=== PATIENT | female | born 1990 | race Caucasian/White ===

== ENCOUNTER 2021-12-30 11:39 | Emergency (ER) | payer MEDICAID, SELFPAY ==
[2021-12-30 11:44] VITALS: BP 103/72; PULSE 99; RESP 16; TEMP 36.7; O2SAT 100; BMI 21.6
--- NOTE | 2021-12-30 11:50 | ED_ITS ---
HPI - General Adult General: Chief complaint: Abdominal Pain Stated complaint: abd pain Time Seen by Provider: 12/30/21 11:48 History of Present Illness: Patient is a 31-year-old female with a history of 2 prior , endometrioma/endometriosis, recent hysterectomy on 12/08/2021 at [place] presenting to the emergency room with concerns of diffuse abdominal pain and syncope. Patient tells me that for the last 3 weeks patient has had ongoing abdominal pain after surgery. However earlier today, patient noted that she have gradual worsening diffuse abdominal pain. Patient was at the store earlier today when she passed out. Patient denies any hitting her head. This episode was witnessed by family. Patient denies any vaginal bleeding, melena hematochezia. Patient says that the pain has never been this severe and decided to come to the emergency room for further evaluation. Patient denies any fever but reports chills. Patient has a cough, runny nose sore throat or shortness or chest pain. Patient reports having shortness of breath for the last 2 to 3 weeks but has not worsened in this time. Onset: earlier today Duration:ongoing Location:home Severity:moderate Associated symptoms: Reports dyspnea and nausea; Deny chest pain, rash, palpitations or vomiting Review of Systems Const: Denies: fever(s) or chills Eyes: Denies: change in vision ENMT: Denies: mouth pain Card: Denies: chest pain or palpitations Resp: Reports: dyspnea; Denies: non-productive cough GI: Reports: abdominal pain and nausea; Denies: vomiting or diarrhea : Denies: dysuria Musc: Denies: extremity pain Skin/Breast: Denies: rash or new lesions Neuro: Reports: other (+syncope); Denies: weakness in extremities Psych: Reports: other (Normal mood) Renan/Lymph: Denies: easy bruising PFSH ED PFSH: Medical History Endometrial cancer Endometriosis Surgical History H/O: hysterectomy Social History Smoking and tobacco status: never smoked Alcohol intake: never Physical Exam Const: COMMON NORMALS: alert HENMT: COMMON NORMALS: atraumatic HEAD & SCALP: atraumatic MOUTH: moist mucous membranes abnormal Eye: COMMON NORMALS: EOMs intact bilaterally and conjunctivae normal CONJUNCTIVA: Yes conjunctivae normal Neck/C-Spine: COMMON NORMALS: full ROM and supple Resp: COMMON NORMALS: normal respiratory effort and clear to auscultation bilaterally AUSCULTATION: clear to auscultation bilaterally Cardio: COMMON NORMALS: regular rate RATE: regular rate GI: COMMON NORMALS: Soft to palpation PALPATION: Yes Soft to palpation OTHER: +moderate diffuse TTP. NO guarding rebound, guarding, rigidity. No CVA tenderness to percussion. Neg Caceres/Neg McBurney's point tenderness, no suprabupic tenderness to palpation. Extremity: COMMON NORMALS: full ROM Neuro: SENSORIUM/ORIENTATION: Yes alert MOTOR EXAM: No Abnormal motor strength present and Other motor observations present (no focal motor deficits) Psych: COMMON NORMALS: speech normal SPEECH: Yes normal speech MOOD & AFFECT: Yes euthymic mood Course Vital Signs: Vital signs: Vital Signs Temperature 98.0 F 12/30/21 11:44 Pulse Rate 64 12/30/21 14:45 Respiratory Rate 15 12/30/21 14:37 Blood Pressure 102/65 12/30/21 13:00 Pulse Oximetry 100 12/30/21 14:45 Oxygen Delivery Me thod 12/30/21 14:45 MDM - General Adult Medical Decision Making Patient is a 31-year-old female with a history of 2 prior , endometrioma/endometriosis, recent hysterectomy on 12/08/2021 at [place] presenting to the emergency room with concerns of diffuse abdominal pain and syncope. Exam, patient is hemodynamically stable. Patient is noted have di ffuse abdominal tenderness without guarding or rebound tenderness. EKG not showing signs of Brugada, HOCM, WPW, or QT prolongation. Lab work-up showed hemoglobin 12.6. Lab within normal limit. Patient received IVF report mild diffuse abdominal pain. CT on pelvis did not show any signs of acute pathology. There is no signs of acute extravasation or bleeding. I suspect the patient may has had a vasovagal episode from the pain. Patient has patient does not have any shortness of breath, pleuritic chest pain, hypoxemia or tachycardia, I do not suspect acute pulmonary embolism is the cause of patient's syncope episode. Rx percocet for ongong post-operative pain Disposition: Discharge. Patient counseled regarding diagnostic impression, treatment plan. Patient given ED strict return precautions to return for continuation, worsening, or development of new symptoms. Instructed to f/u w/ PCP regarding symptoms today. Patient verbalized understanding. Around 4 PM, patient shortly after patient was discharged, patient's dimer resulted. Suspect that the D-dimer elevation is likely secondary to postoperative findings. However given elevation of dimer in the setting syncope and mild dyspnea, I have called patient on her cell phone and instructed her that she needs to come back to the emergency room immediately to evaluate for possible blood clot/pulmonary embolism. I explained the risk of not coming back to the emergency room which improved respiratory decompensation and possible . Patient verbalized understanding of the risk and reassures me she will come back to the ED for evaluation of blood clots. Lab Data : 12/30/21 12:44 12/30/21 12:44 Radiology Impressions Abdomen/Pelvis CT 12/30/21 11:58 IMPRESSION: 1. Recent recent reported hysterectomy. No evidence of large fluid collection or hematoma in the hysterectomy bed. 2. Urine distended bladder. 3. Diffuse fatty infiltration liver. 4. No other acute findings. Chest X-Ray 12/30/21 11:58 IMPRESSION: No acute findings. Laboratory Results WBC 5.9 10^3/uL (4.0-10.0) 12/30/21 12:44 RBC 4.41 10^6/uL (4.1-5.3) 12/30/21 12:44 Hgb 12.6 g/dL (11.5-15.3) 12/30/21 12:44 Hct 38.9 % (37.0-47.0) 12/30/21 12:44 MCV 88.2 fl (81-99) 12/30/21 12:44 MCH 28.6 pg (28.0-34.0) 12/30/21 12:44 MCHC 32.4 g/dL (30.0-36.0) 12/30/21 12:44 RDW 12.4 % (12.1-15.1) 12/30/21 12:44 Plt Count 297 10^3/cmm (130-400) 12/30/21 12:44 MPV 9.2 fL (7.4-10.4) 12/30/21 12:44 Neut % (Auto) 61.8 % 12/30/21 12:44 Lymph % (Auto) 29.8 % 12/30/21 12:44 [place] % (Auto) 5.4 % 12/30/21 12:44 Eos % (Auto) 2.5 % 12/30/21 12:44 Baso % (Auto) 0.3 % 12/30/21 12:44 Neut # (Auto) 3.67 10^3/uL (1.8-7.7) 12/30/21 12:44 Lymph # (Auto) 1.8 10^3/uL (0.8-4.8) 12/30/21 12:44 [place] # (Auto) 0.3 10^3/uL (0.2-0.9) 12/30/21 12:44 Eos # (Auto) 0.2 10^3/uL (0.0-0.8) 12/30/21 12:44 Baso # (Auto) 0.0 10^3/uL (0.0-0.1) 12/30/21 12:44 Nucleated RBC % (auto) 0 % 12/30/21 12:44 Nucleated RBCs # 0.0 /100WBC 12/30/21 12:44 PT 13.60 SECONDS (12.1-14.9) 12/30/21 12:44 INR 1.01 (0.8-1.2) 12/30/21 12:44 APTT 30.9 SECONDS (23.9-36.7) 12/30/21 12:44 D-Dimer 4.56 ug/mIFEU (0-0.59) H 12/30/21 12:44 Sodium 137 mmol/L (136-145) 12/30/21 12:44 Potassium 3.7 mmol/L (3.5-5.1) 12/30/21 12:44 Chloride 98 mmol/L (98-107) 12/30/21 12:44 Carbon Dioxide 28 mmol/L (22-29) 12/30/21 12:44 Anion Gap 14.7 (5-19) 12/30/21 12:44 BUN 15 mg/dL (6-20) 12/30/21 12:44 Creatinine 0.7 mg/dL (0.5-0.9) 12/30/21 12:44 GFR Calculation 96.4 mL/min (90-130) 12/30/21 12:44 Glucose 80 mg/dL (65-115) 12/30/21 12:44 Calculated Osmolality 284 mOsm/kg (285-295) L 12/30/21 12:44 Lactate 1.2 mmol/L (0.5-2.2) 12/30/21 12:44 Calcium 9.2 mg/dL (8.5-10.5) 12/30/21 12:44 Total Bilirubin 0.3 mg/dL (0.15-1.2) 12/30/21 12:44 AST 15 U/L (0-32) 12/30/21 12:44 ALT 12 U/L (0-33) 12/30/21 12:44 Alkaline Phosphatase 95 U/L (35-105) 12/30/21 12:44 Total Protein 7.5 g/dL (6.6-8.7) 12/30/21 12:44 Albumin 4.3 g/dL (3.5-5.2) 12/30/21 12:44 Globulin 3.2 g/dL (1.3-4.6) 12/30/21 12:44 Lipase 30 U/L (13-60) 12/30/21 12:44 Urine Color Yellow (Yellow) 12/30/21 14:40 Urine Appearance Hazy (CLEAR) A 12/30/21 14:40 Urine pH 5 (5-7) 12/30/21 14:40 Ur Specific [place] 1.010 (1.005-1.030) 12/30/21 14:40 Urine Protein Trace (Negative) 12/30/21 14:40 Urine Glucose (UA) Norm (Normal) 12/30/21 14:40 Urine Ketones Negative (Negative) 12/30/21 14:40 Urine Blood Neg (Negative) 12/30/21 14:40 Urine Nitrate Negative (Negative) 12/30/21 14:40 Urine Bilirubin Neg (Negative) 12/30/21 14:40 Urine Urobilinogen Norm mg/dL (Negative) 12/30/21 14:40 Ur Leukocyte Esterase Negative (Negative) 12/30/21 14:40 Urine RBC None /hpf (0-2) 12/30/21 14:40 Urine WBC 5-10 /hpf (0-5) H 12/30/21 14:40 Ur Squamous Epith Cells 10-15 /hpf (0-5) H 12/30/21 14:40 Amorphous Sediment Not Reportable 12/30/21 14:40 Urine Bacteria 1+ /hpf (NONE) H 12/30/21 14:40 Imaging Data Other Imaging: Radiologist's impression: [place] [address] XRay Report Signed Patient: Iveth Rojas Unit #: [id number] : 1990 Age/Sex: 31 / F ADM Date: 12/30/21 Loc: ER Room/Bed: Attending Dr: Ordering Provider/Ordering MD: Alda Beasley MD Date of Service: 12/30/21 Procedure(s): XR chest 1V portable [id number] Accession Number(s): [id number] Report Number: [id number] PROCEDURE INFORMATION: Exam: XR Chest Exam date and time: 12/30/2021 12:38 PM Age: 31 years old Clinical indication: Dyspnea; Additional info: Syncope dyspnea TECHNIQUE: Imaging protocol: Radiologic exam of the chest. Views: 1 view. COMPARISON: No relevant prior studies available. FINDINGS: Lungs: Unremarkable. No consolidation. Pleural spaces: Unremarkable. No pleural effusion. No pneumothorax. Heart/Mediastinum: Unremarkable. No cardiomegaly. Bones/joints: Unremarkable. XR/XR chest 1V portable [id number] IMPRESSION: No acute findings. ? Dictated By: Efrain River Signed By: Efrain River Signed Date/Time: 12/30/21 1306 DD/ 1238 [place] [address] CT Scan Report Signed Patient: Iveth Rojas Unit #: [id number] : 1990 Age/Sex: 31 / F ADM Date: 12/30/21 Loc: ER Room/Bed: Attending Dr: Ordering Provider/Ordering MD: Alda Beasley MD Date of Service: 12/30/21 Procedure(s): CT abdomen pelvis w con* [id number] Accession Number(s): [id number] Report Number: [id number] WS: [id number] CT ABDOMEN PELVIS TECHNIQUE: Contrast-enhanced CT of the abdomen and pelvis with coronal and sagittal reformatted images. CLINICAL INFORMATION: abd pain COMPARISON: None. DLP: 350.[address] scans at [facility] use at least one of these dose optimization techniques: automated exposure control; mA and/or kV adjustment per patient size (includes targeted exams where dose is matched to clinical indication); or iterative reconstruction. FINDINGS: Recently reported hysterectomy. No evidence of postoperative abscess, hematoma, or fluid collection in the hysterectomy bed. Trace free fluid in the cul-de-sac. Urine distended bladder. Diffuse fatty infiltration? liver. Normal portal vein and splenic vein. Normal pancreas. Normal spleen. Normal GE junction. Lung bases are well aerated. Adrenal glands are normal. Normal renal parenchymal enhancement. No hydronephrosis. Normal caliber abdominal aorta. Fat-containing umbilical hernia. Normal sigmoid colon. A few diverticuli. No evidence of acute diverticulitis. CT/CT abdomen pelvis w con* [id number] IMPRESSION: ? 1.? Recent recent reported hysterectomy. No evidence of large fluid collection or hematoma in the hysterectomy bed. 2.? Urine distended bladder. 3.? Diffuse fatty infiltration liver. 4.? No other acute findings. ? Dictated By: Jeremiah Rosenthal MD Signed By: Jeremiah Rosenthal MD Signed Date/Time: 12/30/211408 DD/ 02 Discharge Plan Discharge Patient Disposition: Home Clinical Impression: Abdominal pain, Syncope Condition: Stable Prescriptions: New Percocet 5-325 mg tablet 1 tab PO Q8H PRN (Reason: pain) Qty: 5 0RF No Action clonazepam 1 mg tablet 1 mg PO DAILY venlafaxine 150 mg capsule,extended release 24hr 15 mg PO DAILY estradiol 1 mg tablet 1 mg PO DAILY Discharge Orders: Discharge ED (Routine); Ordered 12/30/21 Ordered By: Alda Beasley Discharge Diet: Advance as tolerated Discharge Activity: Increase activity as tolerated Patient Instructions: Abdominal Pain (ED), Pain Management Activity Restrictions/Additional Instructions: Please come back if you have any worsening abdominal pain, fever or chills, nausea or vomiting, diarrhea, blood in the stool, inability hold down liquid or solids, or any new concerning complaints. Please come back to the emergency room for any more breakthrough episodes of passing out. Come back if any weakness in her arms, drooling, difficulty speaking, any neurological symptoms, chest pain/shortness of breath/palpitation or any new or concerning issues. Please do not swim, bathe, operate heavy machinery or drive a vehicle unattended. Coding Level of Care Code ED Epic Interface Analyst for Joceline Fwrin Exam Comprehensive
--- NOTE | 2021-12-30 11:58 | CT_ITS ---
WS: [id number] CT ABDOMEN PELVIS TECHNIQUE: Contrast-enhanced CT of the abdomen and pelvis with coronal and sagittal reformatted image s. CLINICAL INFORMATION: abd pain COMPARISON: None. DLP: 350.[address] scans at [facility] use at least one of these dose optimization techniques: automated e xposure control; mA and/or kV adjustment per patient size (includes targeted exams where dose is matc hed to clinical indication); or iterative reconstruction. FINDINGS: Recently reported hysterectomy. No evidence of postoperative abscess, hematoma, or fluid collection i n the hysterectomy bed. Trace free fluid in the cul-de-sac. Urine distended bladder. Diffuse fatty infiltration liver. Normal portal vein and splenic vein. Normal pancreas. Normal splee n. Normal GE junction. Lung bases are well aerated. Adrenal glands are normal. Normal renal parenchym al enhancement. No hydronephrosis. Normal caliber abdominal aorta. Fat-containing umbilical hernia. Normal sigmoid colon. A few diverticuli. No evidence of acute diverticulitis. CT/CT abdomen pelvis w con* [id number] IMPRESSION: 1. Recent recent reported hysterectomy. No evidence of large fluid collection or hematoma in the hysterectomy bed. 2. Urine distended bladder. 3. Diffuse fatty infiltration liver. 4. No other acute findings.
--- NOTE | 2021-12-30 11:58 | XRR_ITS ---
PROCEDURE INFORMATION: Exam: XR Chest Exam date and time: 12/30/2021 12:38 PM Age: 31 years old Clinical indication: Dyspnea; Additional info: Syncope dyspnea TECHNIQUE: Imaging protocol: Radiologic exam of the chest. Views: 1 view. COMPARISON: No relevant prior studies available. FINDINGS: Lungs: Unremarkable. No consolidation. Pleural spaces: Unremarkable. No pleural effusion. No pneumothorax. Heart/Mediastinum: Unremarkable. No cardiomegaly. Bones/joints: Unremarkable. XR/XR chest 1V portable [id number] IMPRESSION: No acute findings.
--- NOTE | 2021-12-30 11:58 | ECG_ITS ---
[facility] Test Date: 2021-12-30 Pat Name: Iveth Rojas Department: Room: Gender: Female Program Support Assistant: : 1990 Requested By: Alda Beasley Order Number: [id number] Lizbeth MD: Kervin Hebert M.D. Measurements Intervals [place] Rate: 81 P: 83 CT: 156 QRS: 64 QRSD: 98 T: 45 QT: 351 QTc: 409 Interpretive Statements SINUS RHYTHM POSSIBLE LEFT ATRIAL ENLARGEMENT [-0.1mV P-WAVE IN V1/V2] POSSIBLE RIGHT VENTRICULAR CONDUCTION DELAY [RSR (QR) IN V1/V2] MODERATE ST DEPRESSION [0.05+ mV ST DEPRESSION] No previous ECG available for comparison Electronically Signed On 12-30-2021 20:54:20 CDT by Kervin Hebert M.D. [id number]
[2021-12-30 12:33] VITALS: BP 100/48; PULSE 78; O2SAT 100
[2021-12-30 12:52] VITALS: RESP 13
[2021-12-30] MEDS: morphine 4 mg/mL SDV 1 mL IVP ×2 (12:52→14:37)
[2021-12-30] MEDS: acetaminophen 500 mg Tablet PO (12:52)
[2021-12-30] MEDS: sodium chloride 0.9% 1,000 ML 999 ML IV (12:53)
[2021-12-30 12:56] LABS: Basophils % 0.3 %; Eosinophils # 0.2 10^3/uL (0.0-0.8); Eosinophils % 2.5 %; Hematocrit 38.9 % (37.0-47.0); Hemoglobin 12.6 g/dL (11.5-15.3); Lymphocytes # 1.8 10^3/uL (0.8-4.8); Lymphocytes % 29.8 %; Mean Corpuscular HGB Conc 32.4 g/dL (30.0-36.0); Mean Corpuscular Hemoglobin 28.6 pg (28.0-34.0); Mean Corpuscular Volume 88.2 fl (81-99); Mean Platelet Volume 9.2 fL (7.4-10.4); Monocytes # 0.3 10^3/uL (0.2-0.9); Monocytes % 5.4 %; Neutrophils # 3.67 10^3/uL (1.8-7.7); Neutrophils % 61.8 %; Nucleated Red Blood Cells % 0 %; Platelet Count 297 10^3/cmm (130-400); Red Blood Count 4.41 10^6/uL (4.1-5.3); Red Cell Distribution Width 12.4 % (12.1-15.1); White Blood Count 5.9 10^3/uL (4.0-10.0)
[2021-12-30 13:00] VITALS: BP 102/65; PULSE 63; RESP 14; O2SAT 100
[2021-12-30 13:10] LABS: INR 1.01 (0.8-1.2)
[2021-12-30 13:11] LABS: Partial Thromboplastin Time 30.9 SECONDS (23.9-36.7)
[2021-12-30 13:15] LABS: Alanine Aminotransferase 12 U/L (0-33); Albumin Level 4.3 g/dL (3.5-5.2); Alkaline Phosphatase 95 U/L (35-105); Anion Gap 14.7 (5-19); Aspartate Amino Transferase 15 U/L (0-32); Blood Urea Nitrogen 15 mg/dL (6-20); Calcium 9.2 mg/dL (8.5-10.5); Carbon Dioxide 28 mmol/L (22-29); Chloride 98 mmol/L (98-107); Globulin 3.2 g/dL (1.3-4.6); Glomerular Filtration Rate 96.4 mL/min (90-130); Glucose 80 mg/dL (65-115); Lipase 30 U/L (13-60); Osmolality Calculated 284 mOsm/kg (285-295); Potassium 3.7 mmol/L (3.5-5.1); Sodium 137 mmol/L (136-145); Total Bilirubin 0.3 mg/dL (0.15-1.2); Total Protein 7.5 g/dL (6.6-8.7)
[2021-12-30 13:20] LABS: Lactate (Lactic Acid level) 1.2 mmol/L (0.5-2.2)
[2021-12-30] MEDS: iohexol 350 mg/mL 100 mL Btl IV (13:32)
[2021-12-30 14:37] VITALS: RESP 15
[2021-12-30 14:45] VITALS: PULSE 64; O2SAT 100
[2021-12-30 14:59] LABS: Add Urine Microscopic? YES; Bilirubin Urine Neg (Negative); Blood Urine Neg (Negative); Glucose Urine UA Norm (Normal); Ketones Urine Negative (Negative); Leukocyte Esterase Urine Negative (Negative); Nitrate Urine Negative (Negative); Protein Urine Trace (Negative); Urine Appearance Hazy (CLEAR); Urine Color Yellow (Yellow); Urobilinogen Urine Norm (Negative); pH Urine 5 (5-7)
[2021-12-30 15:01] LABS: Add Urine Culture? No; Bacteria Urine 1+ /hpf
[2021-12-30 15:18] LABS: D Dimer 4.56 ug/mIFEU (0-0.59)
== END 2021-12-30 14:55 | disposition home or self-care (01) ==
PROVIDERS: Emergency Provider Emergency Medicine
DX: R10.9 Unspecified abdominal pain (principal); R55 Syncope and collapse; Z85.89 Personal history of malignant neoplasm of other organs and systems
CPT/HCPCS: 71045; 74177; 80053; 81001; 83605; 83690; 85025; 85378; 85610; 85730; 93005; 96361; 96374; 96376; 99285; J2270; J7030; Q9967

== ENCOUNTER 2022-01-21 10:14 | Emergency (ER) | payer MEDICAID, SELFPAY ==
[2022-01-21 10:23] VITALS: BP 105/67; PULSE 84; RESP 18; TEMP 36.2; O2SAT 98; BMI 23.1
--- NOTE | 2022-01-21 11:01 | ED_ITS ---
HPI - Abdominal Pain General: Chief Complaint: Abdominal Pain Stated Complaint: passed out Time Seen by Provider: 01/21/22 10:27 Source: patient Mode of arrival: ambulatory Limitations: no limitations History of Present Illness: 31-year-old female presents emergency room after passing out from severe pelvic pain began suddenly. It is resolved at this time. She has a history of endometriosis and tells me she had endometrial cancer. They did a hysterectomy and then subsequently had other problems r esulting in a bilateral oophorectomy. She was started on estradiol after this her hysterectomy was a little over a month ago. She denies any fever sweats chills no nausea vomiting or diarrhea. MD elicited complaint: abdominal pain Pertinent past history: none Onset (ago): minute(s) Pain Consistency: constant Location: None Severity: mild Quality: cramping Radiation: none Migration to: no migration Exacerbating factors: nothing Relieving factors: nothing Associated Symptoms: Reports constipation and GI cramping; Denies anorexia, belching, bloating, change in bowel habits, change in stool character, chills, coffee ground emesis, diarrhea, dyspepsia, dysuria, excessive flatus, fever(s), heartburn, hematochezia, hematuria, hematemesis, fecal incontinence, loose stools, melena, nausea, poor appetite, syncope and vomiting Review of Systems Const: Denies: fever(s) or chills ENMT: Denies: throat pain, ear or mastoid pain, nasal discharge or nasal congestion Card: Denies: syncope Resp: Denies: dyspnea, productive cough or non-productive cough GI: Reports: constipation and GI cramping; Denies: nausea, vomiting, hematemesis, coffee ground emesis, heartburn, diar herman, bloating, belching, excessive flatus, fecal incontinence, change in bowel habits, change in stool character, hematochezia or melena : Denies: dysuria or hematuria Skin/Breast: Denies: rash or pruritus PFSH ED PFSH: Medical History Endometrial cancer Endometriosis Surgical History H/O: hysterectomy Social History Smoking and tobacco status: never smoked Alcohol intake: never Physical Exam Const: COMMON NORMALS: no acute distress GENERAL APPEARANCE: cooperative and comfortable ORIENTATION/CONSCIOUSNESS: Yes awake, Yes oriented to person, Yes oriented to place and Yes oriented to time HENMT: COMMON NORMALS: normocephalic, atraumatic and hearing grossly normal bilaterally HEAD & SCALP: normocephalic and atraumatic Resp: COMMON NORMALS: normal respiratory effort, No retractions, No use of accessory muscles and clear to auscultation bilaterally AUSCULTATION: clear to auscultation bilaterally Cardio: COMMON NORMALS: regular rate, regular rhythm and No murmurs present (Cardio) RATE: regular rate RHYTHM: regular rhythm GI: COMMON NORMALS: Soft to palpation and No hepatosplenomegaly present AUSCULTATION: Yes normoactive bowel sounds PALPATION: Yes Soft to palpation, No Tenderness to palpation present (GI), No Guarding due to palpation present (GI) and Yes No hepatosplenomegaly present Extremity: COMMON NORMALS: normal to inspection, capillary refill normal, no clubbing, cyanosis or edema, no calf tenderness and no pedal edema Neuro: SENSORIUM/ORIENTATION: Yes oriented to person, Yes oriented to place and Yes oriented to time Skin: COMMON NORMALS: no rashes or lesions noted GENERAL SKIN EXAM: no mariana hes or lesions noted Course Vital Signs: Vital signs: Vital Signs Temperature 97.2 F L 01/21/22 10:23 Pulse Rate 77 01/21/22 12:57 Respiratory Rate 16 01/21/22 12:57 Blood Pressure 106/72 01/21/22 12:57 Pulse Oximetry 98 01/21/22 10:23 MDM - Abdominal Pain Medical Decision Making Suspect her syncopal episode is resulting from vasovagal episode vasovagal with the pain. CT shows some soft tissue mass at the vaginal cuff not present earlier this month. She is taking estradiol so it is possible that its endometrial area that is enlarged. Could be recurrence of the cancer not really sure because we do not have any records exactly what type of cancer and where it was located. At this point we could do further imaging here but it only would change her disposition and she would likely have to have it repeated with gynecology. It would not be considered emergent. Organ to go ahead and discharge her home and reviewed all of this with her and encouraged her very str ongly to follow-up with her financial services specialist as soon as possible they would do any necessary further imaging and evaluate significance of the soft tissue mass. Medical Records I reviewed the patient's medical records. Lab Data I reviewed the patient's lab results. : 01/21/22 11:10 01/21/22 11:10 Labs/Radiology: Radiology Impressions Abdomen/Pelvis CT 01/21/22 11:13 IMPRESSION: 1. Patient is status post hysterectomy. 2. There is mild increased soft tissue in the region of the vaginal cuff and at the hysterectomy site with mild enhancement. Recurrent endometrial cancer should be considered. Very nonspecific but needs to be further evaluated. Transvaginal imaging may be helpful. No abscess identified. No free fluid or adenopathy. 3. Normal appendix. Notified Jose Caputo DO at 01/21/2022 11:46 AM. Laboratory Results WBC 5.8 10^3/uL (4.0-10.0) 01/21/22 11:10 RBC 4.15 10^6/uL (4.1-5.3) 01/21/22 11:10 Hgb 11.8 g/dL (11.5-15.3) 01/21/22 11:10 Hct 36.2 % (37.0-47.0) L 01/21/22 11:10 MCV 87.2 fl (81-99) 01/21/22 11:10 MCH 28.4 pg (28.0-34.0) 01/21/22 11:10 MCHC 32.6 g/dL (30.0-36.0) 01/21/22 11:10 RDW 12.4 % (12.1-15.1) 01/21/22 11:10 Plt Count 334 10^3/cmm (130-400) 01/21/22 11:10 MPV 8.9 fL (7.4-10.4) 01/21/22 11:10 Neut % (Auto) 56.4 % 01/21/22 11:10 Lymph % (Auto) 37.2 % 01/21/22 11:10 [place] % (Auto) 3.8 % 01/21/22 11:10 Eos % (Auto) 1.7 % 01/21/22 11:10 Baso % (Auto) 0.7 % 01/21/22 11:10 Neut # (Auto) 3.24 10^3/uL (1.8-7.7) 01/21/22 11:10 Lymph # (Auto) 2.1 10^3/uL (0.8-4.8) 01/21/22 11:10 [place] # (Auto) 0.2 10^3/uL (0.2-0.9) 01/21/22 11:10 Eos # (Auto) 0.1 10^3/uL (0.0-0.8) 01/21/22 11:10 Baso # (Auto) 0.0 10^3/uL (0.0-0.1) 01/21/22 11:10 Nucleated RBC % (auto) 0 % 01/21/22 11:10 Nucleated RBCs # 0.0 /100WBC 01/21/22 11:10 Sodium 138 mmol/L (136-145) 01/21/22 11:10 Potassium 4.1 mmol/L (3.5-5.1) 01/21/22 11:10 Chloride 103 mmol/L (98-107) 01/21/22 11:10 Carbon Dioxide 25 mmol/L (22-29) 01/21/22 11:10 Anion Gap 14.1 (5-19) 01/21/22 11:10 BUN 16 mg/dL (6-20) 01/21/22 11:10 Creatinine 0.7 mg/dL (0.5-0.9) 01/21/22 11:10 GFR Calculation 96.4 mL/min (90-130) 01/21/22 11:10 Glucose 90 mg/dL (65-115) 01/21/22 11:10 Calculated Osmolality 287 mOsm/kg (285-295) 01/21/22 11:10 Calcium 9.4 mg/dL (8.5-10.5) 01/21/22 11:10 Total Bilirubin 0.2 mg/dL (0.15-1.2) 01/21/22 11:10 AST 12 U/L (0-32) 01/21/22 11:10 ALT 11 U/L (0-33) 01/21/22 11:10 Alkaline Phosphatase 96 U/L (35-105) 01/21/22 11:10 Total Protein 7.4 g/dL (6.6-8.7) 01/21/22 11:10 Albumin 4.2 g/dL (3.5-5.2) 01/21/22 11:10 Globulin 3.2 g/dL (1.3-4.6) 01/21/22 11:10 HCG, Qual Negative (Negative) 01/21/22 11:10 Urine Color Yellow (Yellow) 01/21/22 11:10 Urine Appearance Clear (CLEAR) 01/21/22 11:10 Urine pH 8 (5-7) H 01/21/22 11:10 Ur Specific [place] 1.020 (1.005-1.030) 01/21/22 11:10 Urine Protein Neg (Negative) 01/21/22 11:10 Urine Glucose (UA) Norm (Normal) 01/21/22 11:10 Urine Ketones Negative (Negative) 01/21/22 11:10 Urine Blood Neg (Negative) 01/21/22 11:10 Urine Nitrate Negative (Negative) 01/21/22 11:10 Urine Bilirubin Neg (Negative) 01/21/22 11:10 Prot Sulfosalicylic Acd Negative (Negative) 01/21/22 11:10 Urine Urobilinogen Norm mg/dL (Negative) 01/21/22 11:10 Ur Leukocyte Esterase Negative (Negative) 01/21/22 11:10 Discharge Plan Discharge Patient Disposition: Home Clinical Impression: Vaginal cuff granuloma Condition: Stable Prescriptions: No Action clonazepam 1 mg tablet 1 mg PO DAILY venlafaxine 150 mg capsule,extended release 24hr 15 mg PO DAILY estradiol 1 mg tablet 1 mg PO DAILY Percocet 5-325 mg tablet 1 tab PO Q8H PRN (Reason: pain) Qty: 5 0RF Discharge Orders: Discharge ED (Routine); Ordered 01/21/22 Ordered By: Jose Caputo Discharge Diet: Usual diet Discharge Activity: Increase activity as tolerated Patient Instructions: Opioid Safety, Pain Management Activity Restrictions/Additional Instructions: Follow-up with your financial services specialist to evaluate the significance of the tissue mass seen at the vaginal cuff on CT imaging. Coding Level of Care Code ED Special Agent for Joceline Hewitt
--- NOTE | 2022-01-21 11:13 | CT_ITS ---
WS: [id number] CT ABDOMEN AND PELVIS WITH CONTRAST HISTORY: abd pain, pelvic pain for one month after hysterectomy. Syncopal episodes. TECHNIQUE: Imaging performed of the abdomen and pelvis with IV contrast. Single phase imaging of the abdomen. Coronal and sagittal reformats are submitted. All CT scans at [facility] use at [address] one of these dose optimization techniques: automated exposure control; mA and/or kV adjustment per patient size (includes targeted exams where dose is matched to clinical indication); or iterative re construction. IV CONTRAST: Omnipaque 350; 95 mL IV. Oral contrast: No DLP: 350.30 mGy.cm COMPARISON: 12/30/2021 Lower thorax: Lung bases are clear. Heart is normal size. No hiatal hernia. Liver/biliary system: Normal size with no intrahepatic dilatation. Gallbladder: Normal. No gallstones or wall thickening. No pericholecystic fluid. Pancreas: Normal size pancreas and pancreatic duct. No adjacent inflammation. Spleen: Normal size spleen. No mass or infarct. Adrenal glands: Normal. Right kidney: Normal. Left kidney: Normal. Aorta: Normal. Lymphadenopathy: None. Free fluid: None. GI tract: No small bowel obstruction. Negative stomach. No colon obstruction. The appendix is normal. Abdominal wall: Unremarkable abdominal wall. No hernia. Pelvis: Status post hysterectomy. There is increased soft tissue with enhancement in the region of th e pelvis adjacent to the vaginal cuff and posterior to the bladder. This is new since the prior study . There is some enhancement. Very nonspecific in appearance but appears full with an expected for pos tsurgical changes of a hysterectomy. Soft tissue measures approximately 4.1 x 3.5 cm. No adjacent terry e fluid. No lymph nodes identified. Bones: Sclerotic focus in the RIGHT ilium. Probably a bone island. CT/CT abdomen pelvis w con* [id number] IMPRESSION: 1. Patient is status post hysterectomy. 2. There is mild increased soft tissue in the region of the vaginal cuff and a t the hysterectomy site with mild enhancement. Recurrent endometrial cancer noé uld be considered. Very nonspecific but needs to be further evaluated. Transvag inal imaging may be helpful. No abscess identified. No free fluid or adenopathy . 3. Normal appendix. Notified Jose Caputo DO at 01/21/2022 11:46 AM.
[2022-01-21 11:16] LABS: Basophils % 0.7 %; Eosinophils # 0.1 10^3/uL (0.0-0.8); Eosinophils % 1.7 %; Hematocrit 36.2 % (37.0-47.0); Hemoglobin 11.8 g/dL (11.5-15.3); Lymphocytes # 2.1 10^3/uL (0.8-4.8); Lymphocytes % 37.2 %; Mean Corpuscular HGB Conc 32.6 g/dL (30.0-36.0); Mean Corpuscular Hemoglobin 28.4 pg (28.0-34.0); Mean Corpuscular Volume 87.2 fl (81-99); Mean Platelet Volume 8.9 fL (7.4-10.4); Monocytes # 0.2 10^3/uL (0.2-0.9); Monocytes % 3.8 %; Neutrophils # 3.24 10^3/uL (1.8-7.7); Neutrophils % 56.4 %; Nucleated Red Blood Cells % 0 %; Platelet Count 334 10^3/cmm (130-400); Red Blood Count 4.15 10^6/uL (4.1-5.3); Red Cell Distribution Width 12.4 % (12.1-15.1); White Blood Count 5.8 10^3/uL (4.0-10.0)
[2022-01-21] MEDS: iohexol 350 mg/mL 100 mL Btl IV (11:23)
[2022-01-21 11:26] LABS: Add Urine Microscopic? NO; Charge for UA Resulting for Rev
[2022-01-21] MEDS: sodium chloride 0.9% 1,000 ML 999 ML IV (11:26)
[2022-01-21] MEDS: ondansetron 2 mg/ML SDV 2 mL 4 MG IVP (11:26)
[2022-01-21] MEDS: ketorolac 30 mg/mL INJ IVP (11:27)
[2022-01-21 11:31] LABS: HCG, Serum Qual Negative (Negative)
[2022-01-21 11:32] LABS: Alanine Aminotransferase 11 U/L (0-33); Albumin Level 4.2 g/dL (3.5-5.2); Alkaline Phosphatase 96 U/L (35-105); Anion Gap 14.1 (5-19); Aspartate Amino Transferase 12 U/L (0-32); Bilirubin Urine Neg (Negative); Blood Urea Nitrogen 16 mg/dL (6-20); Blood Urine Neg (Negative); Calcium 9.4 mg/dL (8.5-10.5); Carbon Dioxide 25 mmol/L (22-29); Chloride 103 mmol/L (98-107); Globulin 3.2 g/dL (1.3-4.6); Glomerular Filtration Rate 96.4 mL/min (90-130); Glucose 90 mg/dL (65-115); Glucose Urine UA Norm (Normal); Ketones Urine Negative (Negative); Leukocyte Esterase Urine Negative (Negative); Nitrate Urine Negative (Negative); Osmolality Calculated 287 mOsm/kg (285-295); Potassium 4.1 mmol/L (3.5-5.1); Protein Urine Neg (Negative); Sodium 138 mmol/L (136-145); Total Bilirubin 0.2 mg/dL (0.15-1.2); Total Protein 7.4 g/dL (6.6-8.7); Urine Appearance Clear (CLEAR); Urine Color Yellow (Yellow); Urobilinogen Urine Norm (Negative); pH Urine 8 (5-7)
[2022-01-21 11:37] LABS: Sulfosalicylic Acid Urine Negative (Negative)
[2022-01-21 12:57] VITALS: BP 106/72; PULSE 77; RESP 16
== END 2022-01-21 12:58 | disposition home or self-care (01) ==
PROVIDERS: Emergency Provider Family Medicine
DX: A58 Granuloma inguinale (principal); Z85.89 Personal history of malignant neoplasm of other organs and systems
CPT/HCPCS: 74177; 80053; 81003; 84703; 85025; 96361; 96374; 96375; 99285; J1885; J2405; J7030; Q9967